=== PATIENT | female | born 1965 | race Two or more races ===

== ENCOUNTER 2019-06-03 12:07 | Inpatient (IN) | payer OTHER ==
[~2019-06-03] VITALS: Ht 160 cm; Wt 83.5 kg
[2019-06-03] MEDS ORDERED: SODIUM CHLORIDE 0.9% 1,000 ML IV ONE (12:30)
[2019-06-03] MEDS ORDERED: ASPIRIN 81MG TABLET PO ONE (12:30)
[2019-06-03 12:47] LABS: BASOPHILS % 0.9 % (0.0-2.0); EOSINOPHILS % 2.3 % (0.0-5.0); HEMOGLOBIN. 13.5 g/dL (12.0-16.0); LYMPHOCYTES % 32.4 % (20.0-50.0); MEAN CORPUSCULAR HEMOGLOBIN 30.4 pg (28.0-32.0); MEAN CORPUSCULAR VOLUME 90.1 fL (81.0-99.0); MEAN PLATELET VOLUME 10.8 fl (7.4-10.4); MONOCYTES % 10.1 % (2.0-8.0); NEUTROPHILS % 54.3 % (40.0-76.0); PLATELET 198 x1000/uL (130-400); RED BLOOD CELL COUNT 4.44 mill/uL (4.2-5.4); RED CELL DISTRIBUTION WIDTH 14.2 % (11.6-14.6)
[2019-06-03 12:56] LABS: CHLORIDE 109 mEq/L (98-107)
[2019-06-03] MEDS ORDERED: DILTIAZEM HCL 5MG/ML 5ML VIAL IV ONE (13:00)
[2019-06-03] MEDS ORDERED: DILTIAZEM HCL 125 MG in DEXT 5% WATER 100 ML IV ONE (13:00)
[2019-06-03] MEDS ORDERED: DOCUSATE SODIUM 100MG CAPSULE PO PRN (13:45)
[2019-06-03] MEDS ORDERED: ACETAMINOPHEN 325MG TABLET PO PRN (13:45)
[2019-06-03] MEDS ORDERED: ONDANSETRON HCL 4MG/2ML INJ IV PRN (13:45)
[2019-06-03] MEDS ORDERED: DIPHENHYDRAMINE 50MG/ML VIAL IV PRN (13:45)
[2019-06-03] MEDS ORDERED: HYDROCODONE/ACETAMINOPHEN 5/325MG TABLET PO PRN (13:45)
[2019-06-03] MEDS ORDERED: GUAIFENESIN 200MG/10ML SUGAR FREE UDC PO PRN (13:45)
[2019-06-03] MEDS ORDERED: IPRATROPIUM/ALBUTEROL 0.5-3(2.5)MG/3ML NEB HHN PRN (13:45)
[2019-06-03] MEDS ORDERED: CLONIDINE 0.1MG TABLET PO PRN (13:45)
[2019-06-03] MEDS ORDERED: MAGNESIUM/ALUMINUM HYDROXIDE/SIMETHICONE 30ML UDC PO PRN (13:45)
[2019-06-03 13:48] LABS: CLARITY URINE CLEAR (CLEAR); COLOR URINE YELLOW (YELLOW); KETONES URINE NEGATIVE (NEGATIVE); LEUKOCYTE ESTERASE URINE TRACE (NEGATIVE); NITRITE URINE NEGATIVE (NEGATIVE); OCCULT BLOOD URINE NEGATIVE (NEGATIVE); PH URINE 6.5 (4.5-8.0); PROTEIN URINE NEGATIVE (NEGATIVE); SPECIFIC GRAVITY URINE 1.005 (1.005-1.030); UROBILINOGEN URINE 0.2 E.U./dL (0.2-1.0)
[2019-06-03 14:20] LABS: PHOSPHORUS 3.6 mg/dL (2.5-4.9)
[2019-06-03 15:41] VITALS: BP 111/75
[2019-06-03 16:00] VITALS: BP 111/75
[2019-06-03] MEDS ORDERED: SOTA80TA PO (17:07)
[2019-06-03] MEDS ORDERED: ASPI-1393 PO (17:07)
[2019-06-03 17:43] LABS: CREATINE KINASE 83 IU/L (26-192); CREATINE KINASE MB FRACTION < 1.0 ng/mL (0.5-3.6)
[2019-06-03] MEDS: SODIUM CHLORIDE 0.9% 1,000 ML IV SCH (17:53)
[2019-06-03] MEDS: POTASSIUM CHLORIDE 20MEQ TABLET SR PO SCH (17:54)
[2019-06-03 18:00] VITALS: BP 98/60
[2019-06-03 20:00] VITALS: BP 102/75
[2019-06-03] MEDS: SOTALOL HCL 80MG TABLET PO SCH (21:00)
[2019-06-03 22:00] VITALS: BP 94/56
[2019-06-03] MEDS: DILTIAZEM HCL 30MG TABLET PO SCH (22:00)
[2019-06-04] VITALS (11 sets, daily range): BP systolic 98–111; BP diastolic 55–71
[2019-06-04] MEDS: SODIUM CHLORIDE 0.9% 1,000 ML IV SCH ×2 (03:55→18:05)
[2019-06-04] MEDS: DILTIAZEM HCL 30MG TABLET PO SCH ×3 (06:00→23:21)
[2019-06-04 06:14] LABS: BASOPHILS % 0.8 % (0.0-2.0); EOSINOPHILS % 3.6 % (0.0-5.0); HEMATOCRIT. 36.1 % (36.0-48.0); HEMOGLOBIN. 12.1 g/dL (12.0-16.0); LYMPHOCYTES % 37.7 % (20.0-50.0); MEAN CORPUSCULAR HEMOGLOBIN 30.4 pg (28.0-32.0); MEAN CORPUSCULAR VOLUME 90.3 fL (81.0-99.0); MEAN PLATELET VOLUME 10.8 fl (7.4-10.4); MONOCYTES % 9.1 % (2.0-8.0); NEUTROPHILS % 48.8 % (40.0-76.0); PLATELET 171 x1000/uL (130-400); RED BLOOD CELL COUNT 3.99 mill/uL (4.2-5.4); RED CELL DISTRIBUTION WIDTH 13.8 % (11.6-14.6)
[2019-06-04 06:17] LABS: CHLORIDE 112 mEq/L (98-107)
[2019-06-04 06:29] LABS: LDL CHOLESTEROL 121 mg/dL (5-100)
[2019-06-04 06:30] LABS: CREATINE KINASE 50 IU/L (26-192)
[2019-06-04 06:32] LABS: CREATINE KINASE MB FRACTION < 1.0 ng/mL (0.5-3.6); HDL CHOLESTEROL 48 mg/dL (40-59)
[2019-06-04] MEDS ORDERED: ASPIRIN 325MG EC TABLET PO SCH (09:00)
[2019-06-04] MEDS: SOTALOL HCL 80MG TABLET PO SCH ×2 (09:00→21:00)
[2019-06-04] MEDS: POTASSIUM CHLORIDE 20MEQ TABLET SR PO SCH ×2 (09:19→18:05)
[2019-06-04 10:24] LABS: *AMPHETAMINES SCREEN URINE NEGATIVE (NEGATIVE); *BARBITURATES SCREEN URINE NEGATIVE (NEGATIVE); *BENZODIAZEPINES SCREEN URINE NEGATIVE (NEGATIVE); *COCAINE SCREEN URINE NEGATIVE (NEGATIVE)
[2019-06-04 10:25] LABS: CANNABINOID URINE SCREEN NEGATIVE (NEGATIVE); METHADONE URINE SCREEN NEGATIVE (NEGATIVE); OPIATES URINE SCREEN NEGATIVE (NEGATIVE); PHENCYCLIDINE URINE SCREEN NEGATIVE (NEGATIVE)
[2019-06-04 16:55] LABS: T4 FREE 0.57 ng/dL (0.76-1.46)
[2019-06-05] VITALS (9 sets, daily range): BP systolic 90–115; BP diastolic 49–74
[2019-06-05] MEDS: DILTIAZEM HCL 30MG TABLET PO SCH ×2 (06:00→13:47)
[2019-06-05 06:44] LABS: BASOPHILS % 0.7 % (0.0-2.0); EOSINOPHILS % 3.8 % (0.0-5.0); HEMATOCRIT. 39.1 % (36.0-48.0); LYMPHOCYTES % 43.4 % (20.0-50.0); MEAN CORPUSCULAR HEMOGLOBIN 29.9 pg (28.0-32.0); MEAN CORPUSCULAR VOLUME 89.8 fL (81.0-99.0); MONOCYTES % 9.9 % (2.0-8.0); NEUTROPHILS % 42.2 % (40.0-76.0); PLATELET 180 x1000/uL (130-400); RED BLOOD CELL COUNT 4.35 mill/uL (4.2-5.4); RED CELL DISTRIBUTION WIDTH 13.8 % (11.6-14.6)
[2019-06-05] MEDS ORDERED: LEVOTHYROXINE SODIUM 50MCG TABLET PO SCH (06:50)
[2019-06-05 07:05] LABS: CHLORIDE 110 mEq/L (98-107)
[2019-06-05] MEDS: POTASSIUM CHLORIDE 20MEQ TABLET SR PO SCH (08:52)
[2019-06-05] MEDS: SOTALOL HCL 80MG TABLET PO SCH (08:52)
[2019-06-05] MEDS ORDERED: ASPIRIN 81MG EC TABLET PO SCH (09:00)
[2019-06-05] MEDS ORDERED: SOTALOL HCL 80MG TABLET PO SCH (21:00)
== END 2019-06-05 15:35 | disposition home or self-care (01) | DRG 310 ==
LOC: ER 12:07 → 3WST 13:34 → ENRESERV 14:10
PROVIDERS: ADMIT Internal Medicine; ATTEND Internal Medicine
DX: I48.0 Paroxysmal atrial fibrillation (principal); I48.92 Unspecified atrial flutter; I49.5 Sick sinus syndrome; Z95.0 Presence of cardiac pacemaker; E03.9 Hypothyroidism, unspecified; Z79.82 Long term (current) use of aspirin; Y99.0 Civilian activity done for income or pay; Z79.899 Other long term (current) drug therapy
CPT/HCPCS: 36415; 71045; 80048; 80061; 80305; 81003; 82550; 82553; 83735; 83880; 84100; 84439; 84443; 84481; 84484; 85379; 93005; 93306; 93970; 99291; J3490; J7030; J7060